=== PATIENT | male | born 1970 | race Two or more races ===

== ENCOUNTER 2018-10-02 18:00 | Emergency (ER) | payer MEDICAID ==
[2018-10-02 19:15] LABS: ADD MAN DIFF? NO
[2018-10-02 19:16] LABS: WHITE BLOOD COUNT 5.3 10^3/ul (4.8-10.8)
[2018-10-02 19:16] LABS: BASOPHILS % 0.8 % (0.0-2.0); EOSINOPHILS # 0.2 10^3/ul (0.0-0.5); EOSINOPHILS % 3.8 % (0.0-7.0); HEMATOCRIT 36.7 % (42.0-52.0); HEMOGLOBIN 13.3 g/dl (14.0-18.0); LYMPHOCYTES # 2.1 10^3/ul (0.8-2.9); LYMPHOCYTES % 38.7 % (15.0-51.0); MEAN CORPUSCULAR HEMOGLOBIN 35.6 pg (29.0-33.0); MEAN CORPUSCULAR HGB CONC 36.2 g/dl (32.0-37.0); MEAN CORPUSCULAR VOLUME 98.1 fl (82.0-101.0); MEAN PLATELET VOLUME 9.6 fl (7.4-10.4); MONOCYTE # 0.5 10^3/ul (0.3-0.9); MONOCYTES % 9.6 % (0.0-11.0); NEUTROPHIL # 2.5 10^3/ul (1.6-7.5); NEUTROPHILS % 46.9 % (39.0-77.0); PLATELET COUNT 164 10^3/UL (140-415); RED BLOOD COUNT 3.74 10^6/ul (4.70-6.10); RED CELL DISTRIBUTION WIDTH 11.3 % (11.5-14.5)
[2018-10-02] MEDS: morphine 4 MG/ML VIAL IV (19:16)
[2018-10-02] MEDS: ONDANSETRON 4 MG INJ IV (19:16)
[2018-10-02] MEDS: ENALAPRILAT 1.25 MG INJ IV (19:17)
[2018-10-02 19:36] LABS: INR 0.97
[2018-10-02 19:37] LABS: ALANINE AMINOTRANSFERASE 79 IU/L (13-69); ALBUMIN 3.9 g/dl (3.3-4.9); ALBUMIN/GLOBULIN RATIO 1.11; ALKALINE PHOSPHATASE 151 IU/L (42-121); ANION GAP 11 (5-13); ASPARTATE AMINO TRANSFERASE 71 IU/L (15-46); BILIRUBIN,INDIRECT 0.6 mg/dl (0-1.1); BILIRUBIN,TOTAL 0.6 mg/dl (0.2-1.3); BLOOD UREA NITROGEN 21 mg/dl (7-20); CALCIUM 9.2 mg/dl (8.4-10.2); CARBON DIOXIDE 25 mmol/L (21-31); CHLORIDE 102 mmol/L (97-110); Estimated GFR > 60 mL/min (>60); GLUCOSE 272 mg/dl (70-220); LIPASE 713 U/L (23-300); PARTIAL THROMBOPLASTIN TIME 30.8 Sec (23.0-35.0); POTASSIUM 4.4 mmol/L (3.5-5.1); SODIUM 138 mmol/L (135-144); TOTAL PROTEIN 7.4 g/dl (6.1-8.1)
[2018-10-02 19:48] LABS: TROPONIN-I < 0.012 ng/ml (0.000-0.120)
== END 2018-10-02 21:46 | disposition home or self-care (01) ==
LOC: E/R 18:00
DX: H33.011 Retinal detachment with single break, right eye (principal); R40.2252 Coma scale, best verbal response, oriented, at arrival to emergency department; R40.2362 Coma scale, best motor response, obeys commands, at arrival to emergency department; R40.2142 Coma scale, eyes open, spontaneous, at arrival to emergency department; E11.9 Type 2 diabetes mellitus without complications; I10 Essential (primary) hypertension; R51 Headache; H53.9 Unspecified visual disturbance; Z79.4 Long term (current) use of insulin
CPT/HCPCS: 36415; 70450; 76536; 80053; 83690; 84484; 85025; 85610; 85730; 96374; 96375; 99285-25